=== PATIENT | male | born 1955 | race Caucasian/White ===

== ENCOUNTER → 2020-01-02 12:58 | Outpatient (BNVA) | payer OTHER, SELFPAY | PROVIDERS: Visit Provider Urology | DX: Z76.89 Persons encountering health services in other specified circumstances (principal) ==

== ENCOUNTER → 2020-07-02 11:32 | Outpatient (BNVA) | payer OTHER, SELFPAY | PROVIDERS: Visit Provider Urology ==

== ENCOUNTER → 2020-12-31 09:59 | Outpatient (BNVA) | payer MEDICARE, OTHER, SELFPAY | PROVIDERS: Visit Provider Urology | DX: E29.1 Testicular hypofunction (principal) | CPT/HCPCS: 99212 ==

== ENCOUNTER → 2021-09-10 09:06 | Outpatient (BNVA) | payer MEDICARE, OTHER, SELFPAY | PROVIDERS: Visit Provider Urology | DX: E29.1 Testicular hypofunction (principal) | CPT/HCPCS: 99212 ==

== ENCOUNTER → 2022-03-12 11:30 | Outpatient (BNVA) | payer MEDICARE, OTHER, SELFPAY | PROVIDERS: Visit Provider Urology | DX: Z13.89 Encounter for screening for other disorder (principal) | CPT/HCPCS: Q3014 ==

== ENCOUNTER 2022-09-09 12:21 | Outpatient (AMB) | payer MEDICARE, OTHER, SELFPAY ==
--- NOTE | 2022-09-09 11:55 | MHC.OFFVIS ---
Intake Intake Visit Reasons: 6M Labs(set) Allergies lisinopril Allergy (Unknown, Verified 03/12/22 11:33) Unknown Medication List - Last Reconciled 09/09/22 by Mauricio Kelly MD adalimumab 40 mg subcut Q2W chorionic gonadotropin, human (Pregnyl) 200iu subcutaneous 3 times a week; dispense 82396 units total with 2 refills 60 days etanercept 50 mg subcut QWEEK etanercept mg subcut hydrochlorothiazide 12.5 mg PO DAILY methotrexate sodium mg subcut naltrexone 50 mg PO DAILY prednisone 0 mg PO testosterone 50 mg topical DAILY 60 days testosterone cypionate 30 mg (0.15 mL) subcut .TIW 90 days thyroid (pork) 75 mg PO DAILY thyroid (pork) 81.25 mg PO DAILY thyroid (pork) 60 mg PO DAILY thyroid (pork) 90 mg PO DAILY valsartan 160 mg PO DAILY valsartan 80 mg PO DAILY HPI HPI Comments History of Present Illness Details Evin is a pleasant male. He is seen for the following urologic conditions - hypogonadism Telemedicine Evaluation 15 min Consultation [employer] Minnie Video Stable lab work 09/04 - T cyp 26u Sat/Wed, cream 300% diluted - other days - high levels so reduced, DHEA, progesterone cream, pregnelone - DHEA 180, PSA 1.5, T 1300, E2 60 03/05 T 522 - 3hr post scrotal cream applications 09/03 - Lab work shows good testosterone and free testosterone, high estradiol Hypogonadism Has a number of autoimmune related issues causing low testosterone - on adalimumab The patient also reports loss of libido Considered moderate Laboratory testing has included May 2015 Testosterone 879, estradiol 35, CRP normal. PSA November 2005 5.7 dropped to 2.3 when CRP was under control. September 2015 testosterone 861, DHT 39, estradiol 18, prolactin 23 May 2016 testosterone 954, estradiol 29, free testosterone 11 Dec 2016 T 1300 05/30 T 780, 07/30 607, 11/30 741, 05/31 795 peak T with good DHT, 12/31 T 600. - 04/04 T 890 E2 FT 258, low sex hormone binding globulin PFSH Medical History HTN (hypertension) Hypogonadism in male Hypothyroidism Libido, decreased OA (osteoarthritis) Rheumatoid arthritis Surgical History History of surgery Review of Systems Const All systems reviewed & are unremarkable except as noted in HPI and below Reports no additional complaints Resp Reports no additional complaints GI Reports no additional complaints Reports as per HPI Musc Reports no additional complaints Physical Exam Telemedicine evaluation Appropriate responses Regular breathing rate and rhythm HEENT Head: Yes normal to inspection Ears: hearing grossly normal bilaterally Eyes General: appearance normal, both eyes and all related structures Neck Neck: Yes normal visual inspection Chest Chest palpation & inspection: normal inspection of the chest Resp Effort & Inspection: normal respiratory effort and able to speak in complete sentences Assessment & Plan Assessment & Plan (1) Hypogonadism in male: Code(s): E29.1 - Testicular hypofunction Plan Six month follow-up lab work Medications: Refilled testosterone apply 1 packet daily 50 mg topical DAILY 120 grams 1RF 60 days E29.1 - Testicular hypofunction testosterone cypionate 30 mg (0.15 mL) subcut .TIW 10 mL 1RF 90 days E29.1 - Testicular hypofunction Patient Instructions: Imaging studies, laboratory and physical exam results were discussed and reviewed in detail. No major barriers to patient understanding were identified. An opportunity to ask questions regarding the treatment plan was provided. All questions were answered. The patient expressed understanding and agreement with the above treatment plan. The patient is aware they should contact our office by phone for worsening of their current condition or the appearance of new urologic symptoms. Compliance is encouraged with any medications and followup testing that is ordered. It is a privilege to participate in the urologic care of your patient. If you have any questions or concerns regarding treatment for the above conditions, or other urologic issues, please do not hesitate to contact me. The office telephone contact is [phone]. This note is constructed using voice recognition software. While every effort has been made to ensure accuracy fig washer errors may have been included. Yours sincerely, Dr Mauricio Kelly MD, [facility] - Urology Providers of Expert, Compassionate Care for the Genitourinary System Telehealth Telehealth Location of provider rendering services: practice address Location of patient: address on file Patient Identification confirmed using: Name, : Yes Telehealth method: video Patient verbally consented to treatment: Yes Patient verbally consented to billing insurance company: Yes Patient informed of any privacy concerns related to visit: Yes Coding Level of Care Code Tele Est Pt Level 3 (77468) Diagnoses Hypogonadism in male E29.1
== END 2022-09-09 13:33 | disposition home or self-care (01) ==
LOC: HO.HUSH 12:21
PROVIDERS: Visit Provider Urology
DX: E29.1 Testicular hypofunction (principal)
CPT/HCPCS: 99213

== ENCOUNTER → 2022-09-09 12:21 | Outpatient (BNVA) | payer MEDICARE, OTHER, SELFPAY | PROVIDERS: Visit Provider Urology | DX: E29.1 Testicular hypofunction (principal) ==

== ENCOUNTER 2023-05-11 13:28 | Outpatient (AMB) | payer MEDICARE, OTHER, SELFPAY ==
--- NOTE | 2023-05-11 13:54 | MHC.OFFVIS ---
Intake Intake Visit Reasons: 6M Testo/CBC(set)Confirmed Intake Note: Patient is Present for Follow Up labs Urology Medication: Testosterone Antibiotic Allergies:None Blood Thinners: None Allergies lisinopril Allergy (Unknown, Verified 05/11/23 13:56) Unknown HPI HPI Comments History of Present Illness Details Evin is a pleasant male. He is seen for the following urologic conditions - hypogonadism Stable lab work 05/08 lab work relatively stable. He is altering amounts given 09/04 - T cyp 26u Wed/Wed, cream 300% diluted - other days - high levels so reduced, DHEA, progesterone cream, pregnelone - DHEA 180, PSA 1.5, T 1300, E2 60 03/05 T 522 - 3hr post scrotal cream applications 09/03 - Lab work shows good testosterone and free testosterone, high estradiol Hypogonadism Has a number of autoimmune related issues causing low testosterone - on adalimumab The patient also reports loss of libido Considered moderate Laboratory testing has included May 2015 Testosterone 879, estradiol 35, CRP normal. PSA November 2005 5.7 dropped to 2.3 when CRP was under control. September 2015 testosterone 861, DHT 39, estradiol 18, prolactin 23 May 2016 testosterone 954, estradiol 29, free testosterone 29 Nov 2016 T 1300 05/30 T 780, 07/30 607, 11/30 741, 05/31 795 peak T with good DHT, 12/31 T 600. - 04/04 T 890 E2 FT 258, low sex hormone binding globulin PFSH Medical History OA (osteoarthritis) HTN (hypertension) Rheumatoid arthritis Hypothyroidism Libido, decreased Hypogonadism in male Surgical History History of surgery Review of Systems Const Denies chills and Denies fever(s) Card Reports no additional complaints and Denies syncope Resp Denies cough GI Denies abdominal pain and Denies heartburn Reports as per HPI and Denies change in libido Neuro Denies syncope Psych Denies change in libido Endo Denies change in libido Physical Exam Const General: cooperative, healthy appearing, comfortable and no acute distress Orientation/consciousness: patient oriented x3 HEENT Face and sinus: Yes normal facial exam Mouth: moist mucous membranes Neck Neck: Yes normal visual inspection, Yes full ROM and Yes trachea midline Chest Chest palpation & inspection: normal inspection of the chest Resp Effort & Inspection: normal respiratory effort, able to speak in complete sentences and no respiratory distress GI Inspection: Yes normal to inspection Back/Spine/Pelvis Cervical Spine: normal cervical lordosis Thoracic/Lumbar Spine: thoracic and lumbar spine normal to inspection Skin General skin exam: no rashes or lesions noted Neuro General: patient oriented x3, gait normal, tone normal and moves all extremities Extrem General: Yes normal to inspection and Yes capillary refill normal Assessment & Plan Assessment & Plan (1) Hypogonadism in male: Code(s): E29.1 - Testicular hypofunction Plan Six-month follow-up Orders: Orders Testosterone, Free/Total 04/27/23 E29.1 - Testicular hypofunction Complete Blood Count no Diff 04/27/23 E29.1 - Testicular hypofunction Patient Instructions: Imaging studies, laboratory and physical exam results were discussed and reviewed in detail. No major barriers to patient understanding were identified. An opportunity to ask questions regarding the treatment plan was provided. All questions were answered. The patient expressed understanding and agreement with the above treatment plan. The patient is aware they should contact our office by phone for worsening of their current condition or the appearance of new urologic symptoms. Compliance is encouraged with any medications and followup testing that is ordered. It is a privilege to participate in the urologic care of your patient. If you have any questions or concerns regarding treatment for the above conditions, or other urologic issues, please do not hesitate to contact me. The office telephone contact is [phone]. This note is constructed using voice recognition software. While every effort has been made to ensure accuracy supervisor aircraft maintenance errors may have been included. Yours sincerely, Dr Mauricio Kelly MD, [facility] - Urology Providers of Expert, Compassionate Care for the Genitourinary System Coding Level of Care Code Est Pt Level 4 (63538) Diagnoses Hypogonadism in male E29.1
== END 2023-05-11 14:43 | disposition home or self-care (01) ==
PROVIDERS: Visit Provider Urology
DX: E29.1 Testicular hypofunction (principal)
CPT/HCPCS: 99213

== ENCOUNTER → 2023-05-11 13:28 | Outpatient (BNVA) | payer MEDICARE, OTHER, SELFPAY | PROVIDERS: Visit Provider Urology | DX: E29.1 Testicular hypofunction (principal) | CPT/HCPCS: 99212 ==

== ENCOUNTER 2023-11-09 09:48 | Outpatient (AMB) | payer MEDICARE, OTHER, SELFPAY ==
--- NOTE | 2023-11-09 09:45 | A.OFFVIS_ITS ---
Intake Visit Reasons: 6M Follow Up-Testosterone(Set) Intake Note: Patient is Present for 6m Follow Up/testosterone Urology Medication: Testosterone,pregnyl Antibiotic Allergies:None Blood Thinners: None Hydro Mechanic Required: No Allergies lisinopril Allergy (Unknown, Verified 11/09/23 09:46) Unknown Medication List - Last Reconciled 11/09/23 by Mauricio Kelly MD adalimumab 40 mg subcut Q2W chorionic gonadotropin, human (Pregnyl) 200iu subcutaneous 3 times a week; dispense 87388 units total with 2 refills 60 days etanercept 50 mg subcut QWEEK etanercept mg subcut hydrochlorothiazide 12.5 mg PO DAILY metformin 500 mg PO BID methotrexate sodium mg subcut naltrexone 50 mg PO DAILY prednisone 0 mg PO testosterone 50 mg topical DAILY 60 days testosterone cypionate 30 mg (0.15 mL) subcut .TIW 90 days thyroid (pork) 75 mg PO DAILY thyroid (pork) 81.25 mg PO DAILY thyroid (pork) 60 mg PO DAILY thyroid (pork) 90 mg PO DAILY valsartan 160 mg PO DAILY valsartan 80 mg PO DAILY HPI Comments Details: Evin is a pleasant male. He is seen for the following urologic conditions - hypogonadism Telemedicine Evaluation 15 min Consultation [employer] Minnie Video 11/05 T cyp 14 units QOD - 50mg a week, DHEA 25, pregnolone 100mg // Anti-aromatase - chrysin (plant) - T 620 E2 30 05/08 lab work relatively stable. He is altering amounts given 09/04 - T cyp 26u Sat/Wed, cream 300% diluted - other days - high levels so reduced, DHEA, progesterone cream, pregnelone - DHEA 180, PSA 1.5, T 1300, E2 60 03/05 T 522 - 3hr post scrotal cream applications 09/03 - Lab work shows good testosterone and free testosterone, high estradiol Hypogonadism Has a number of autoimmune related issues causing low testosterone - on adalimumab The patient also reports loss of libido Considered moderate Laboratory testing has included May 2015 Testosterone 879, estradiol 35, CRP normal. PSA November 2005 5.7 dropped to 2.3 when CRP was under control. September 2015 testosterone 861, DHT 39, estradiol 18, prolactin 23 May 2016 testosterone 954, estradiol 29, free testosterone 29 Nov 2016 T 1300 05/30 T 780, 07/30 607, 11/30 741, 05/31 795 peak T with good DHT, 12/31 T 600. - 04/04 T 890 E2 FT 258, low sex hormone binding globulin PFSH Medical History OA (osteoarthritis) HTN (hypertension) Rheumatoid arthritis Hypothyroidism Libido, decreased Hypogonadism in male Surgical History History of surgery Review of Systems Const All systems reviewed & are unremarkable except as noted in HPI and below Reports no additional complaints Resp Reports no additional complaints GI Reports no additional complaints Reports as per HPI Musc Reports no additional complaints Physical Exam Telemedicine evaluation Appropriate responses Regular breathing rate and rhythm HEENT Head: Yes normal to inspection Ears: hearing grossly normal bilaterally Eyes General: appearance normal, both eyes and all related structures Neck Neck: Yes normal visual inspection Chest Chest palpation & inspection: normal inspection of the chest Resp Effort & Inspection: normal respiratory effort and able to speak in complete sentences Telehealth Telehealth Telehealth Platform: [employer] Location of provider rendering services: practice address Location of patient: address on file Patient Identification confirmed using: Name, : Yes Telehealth method: video Patient verbally consented to treatment: Yes Patient verbally consented to billing insurance company: Yes Patient informed of any privacy concerns related to visit: Yes Minutes spent on Phone/Video with Pt.: 15 Assessment & Plan Assessment & Plan (1) Hypogonadism in male: Code(s): E29.1 - Testicular hypofunction Category: Medical Plan 6m f/u Patient Instructions: Imaging studies, laboratory and physical exam results were discussed and reviewed in detail. No major barriers to patient understanding were identified. An opportunity to ask questions regarding the treatment plan was provided. All questions were answered. The patient expressed understanding and agreement with the above treatment plan. The patient is aware they should contact our office by phone for worsening of their current condition or the appearance of new urologic symptoms. Compliance is encouraged with any medications and followup testing that is ordered. It is a privilege to participate in the urologic care of your patient. If you have any questions or concerns regarding treatment for the above conditions, or other urologic issues, please do not hesitate to contact me. The office telephone contact is [phone]. This note is constructed using voice recognition software. While every effort has been made to ensure accuracy mailing machine operator errors may have been included. Yours sincerely, Dr Mauricio Kelly MD, [facility] - Urology Providers of Expert, Compassionate Care for the Genitourinary System Coding Level of Care Code Tele Est Pt Level 3 (34564) Diagnoses Hypogonadism in male E29.1
== END 2023-11-09 11:58 | disposition home or self-care (01) ==
LOC: HO.HUSH 09:48
PROVIDERS: Visit Provider Urology
DX: E29.1 Testicular hypofunction (principal)
CPT/HCPCS: 99213

== ENCOUNTER → 2023-11-09 09:48 | Outpatient (BNVA) | payer MEDICARE, OTHER, SELFPAY | PROVIDERS: Visit Provider Urology ==

== ENCOUNTER 2024-02-09 09:27 | Outpatient (AMB) | payer MEDICARE, OTHER, SELFPAY ==
--- NOTE | 2024-02-09 09:29 | MHC.OFFVIS ---
Intake Visit Reasons: VT/ER follow up Intake Note: Patient is present for [facility] ER Follow up 01/21/Voiding Trial Urology Med: Testosterone, Tamsulosin Antibiotic Allergy: None Blood Thinner: None [facility] ER- Diagnosed with Pancreatic Cancer Possible stricture Allergies lisinopril Allergy (Unknown, Verified 11/09/23 09:46) Unknown HPI Comments Details: Evin is a pleasant male. He is seen for the following urologic conditions - hypogonadism 02/05 recent diagnosis of pancreatic cancer Had been in hospital for rehydration. Was able to void. Joshi catheter placed. Here for voiding trial today Had catheter for 2 weeks. Approx 1200 cc in bladder. Tamsulosin provided 11/05 T cyp 14 units QOD - 50mg a week, DHEA 25, pregnolone 100mg M/W/ Anti-aromatase - chrysin (plant) - T 620 E2 30 05/08 lab work relatively stable. He is altering amounts given 09/04 - T cyp 26u Wed/Wed, cream 300% diluted - other days - high levels so reduced, DHEA, progesterone cream, pregnelone - DHEA 180, PSA 1.5, T 1300, E2 60 03/05 T 522 - 3hr post scrotal cream applications 09/03 - Lab work shows good testosterone and free testosterone, high estradiol Hypogonadism Has a number of autoimmune related issues causing low testosterone - on adalimumab The patient also reports loss of libido Considered moderate Laboratory testing has included May 2015 Testosterone 879, estradiol 35, CRP normal. PSA November 2005 5.7 dropped to 2.3 when CRP was under control. September 2015 testosterone 861, DHT 39, estradiol 18, prolactin 23 May 2016 testosterone 954, estradiol 29, free testosterone 29 Nov 2016 T 1300 05/30 T 780, 07/30 607, 11/30 741, 05/31 795 peak T with good DHT, 12/31 T 600. - 04/04 T 890 E2 FT 258, low sex hormone binding globulin PFSH Medical History OA (osteoarthritis) HTN (hypertension) Rheumatoid arthritis Hypothyroidism Libido, decreased Hypogonadism in male Surgical History History of surgery Review of Systems Const Denies chills and Denies fever(s) Card Reports no additional complaints and Denies syncope Resp Denies cough GI Denies abdominal pain and Denies heartburn Reports as per HPI and Denies change in libido Neuro Denies syncope Psych Denies change in libido Endo Denies change in libido Physical Exam Const General: cooperative, healthy appearing, comfortable and no acute distress Orientation/consciousness: patient oriented x3 HEENT Face and sinus: Yes normal facial exam Mouth: moist mucous membranes Neck Neck: Yes normal visual inspection, Yes full ROM and Yes trachea midline Chest Chest palpation & inspection: normal inspection of the chest Resp Effort & Inspection: normal respiratory effort, able to speak in complete sentences and no respiratory distress GI Inspection: Yes normal to inspection Back/Spine/Pelvis Cervical Spine: normal cervical lordosis Thoracic/Lumbar Spine: thoracic and lumbar spine normal to inspection Skin General skin exam: no rashes or lesions noted Neuro General: patient oriented x3, gait normal, tone normal and moves all extremities Extrem General: Yes normal to inspection and Yes capillary refill normal Office Procedures Bladder/Catheter Procedure Details: patient presents to office for voiding trial after hospitalization at [facility]. 120mls sterile water instilled through catheter, patient tolerated well. Removed 12fr joshi catheter, patient tolerated well. MA to check how much patient urinates and bladder scan [place] Dr[place] [id number] of Bladder Procedure code (CPT) selection complete Assessment & Plan Assessment & Plan (1) Urinary retention with incomplete bladder emptying: Code(s): R33.9 - Retention of urine, unspecified Category: Medical (2) Hypogonadism in male: Code(s): E29.1 - Testicular hypofunction Category: Medical Plan Two month follow-up PVR office Orders: Orders AMB Post Void Residual by ultrasound Today E29.1 - Testicular hypofunction AMB Bladder/Catheter Procedure Today E29.1 - Testicular hypofunction Medications: New tamsulosin 0.4 mg PO BEDTIME 90 days 90 caps 1RF N13.8 - Other obstructive and reflux uropathy, N40.1 - Benign prostatic hyperplasia with lower urinary tract symptoms, R33.9 - Retention of urine, unspecified Patient Instructions: Imaging studies, laboratory and physical exam results were discussed and reviewed in detail. No major barriers to patient understanding were identified. An opportunity to ask questions regarding the treatment plan was provided. All questions were answered. The patient expressed understanding and agreement with the above treatment plan. The patient is aware they should contact our office by phone for worsening of their current condition or the appearance of new urologic symptoms. Compliance is encouraged with any medications and followup testing that is ordered. It is a privilege to participate in the urologic care of your patient. If you have any questions or concerns regarding treatment for the above conditions, or other urologic issues, please do not hesitate to contact me. The office telephone contact is [phone]. This note is constructed using voice recognition software. While every effort has been made to ensure accuracy meter repair shop supervisor errors may have been included. Yours sincerely, Dr Mauricio Kelly MD, [facility] - Urology Providers of Expert, Compassionate Care for the Genitourinary System Coding Level of Care Code Est Pt Level 4 (72185) Diagnoses Urinary retention with incomplete bladder emptying R33.9 Hypogonadism in male E29.1 CPT Codes Bladder/Catheter Procedure - CPT: 24081-Ruxbcirrmv of Bladder ([id number])
== END 2024-02-09 10:47 | disposition home or self-care (01) ==
PROVIDERS: Visit Provider Urology
DX: R33.9 Retention of urine, unspecified (principal); E29.1 Testicular hypofunction
CPT/HCPCS: 51700; 99214

== ENCOUNTER → 2024-02-09 09:27 | Outpatient (BNVA) | payer MEDICARE, OTHER, SELFPAY | PROVIDERS: Visit Provider Urology | DX: R33.9 Retention of urine, unspecified (principal); E29.1 Testicular hypofunction | CPT/HCPCS: 51700; 99212 ==

== ENCOUNTER → 2024-04-07 10:51 | Outpatient (BNVA) | payer MEDICARE, OTHER, SELFPAY | PROVIDERS: Visit Provider Urology | DX: R33.9 Retention of urine, unspecified (principal); E29.1 Testicular hypofunction | CPT/HCPCS: 51798; 81003; 99212 ==

== ENCOUNTER 2024-09-22 11:51 | Outpatient (AMB) | payer MEDICARE, OTHER, SELFPAY ==
--- NOTE | 2024-09-22 11:52 | A.OFFVIS_ITS ---
Intake Visit Reasons: test results Intake Note: Patient is present for TEST RESULTS Urology Medication:TESTOSTERONE Antibiotic Allergy:NONE Blood Thinner:NONE Feller Buncher Operator Required: No Allergies lisinopril Allergy (Unknown, Verified 09/22/24 11:54) Unknown PFSH Medical History OA (osteoarthritis) HTN (hypertension) Rheumatoid arthritis Hypothyroidism Libido, decreased Hypogonadism in male Surgical History History of surgery Coding
--- NOTE | 2024-09-22 11:55 | A.OFFVIS_ITS ---
Intake Visit Reasons: test results Allergies lisinopril Allergy (Unknown, Verified 09/22/24 11:54) Unknown HPI Comments Details: Evin is a pleasant male. He is seen for the following urologic conditions - hypogonadism - urinary retention Telemedicine Evaluation 15 min Consultation [employer] Minnie Video 10/06 Gemcitabine/Plaxotaxol T 50 E2 17 -250mg/gm - 6mg daily scrotal - adequate symptom control 04/08 PVR 20 cc Continue tamsulosin Has been using testosterone Did discuss using bolus muscle injection in order to max EPO and red cell production 02/05 recent diagnosis of pancreatic cancer had been in hospital for rehydration. Was able to void. Fuller catheter placed. Had catheter for 2 weeks. Approx 1200 cc in bladder. Tamsulosin provided 11/05 T cyp 14 units QOD - 50mg a week, DHEA 25, pregnolone 100mg M/W/ Anti-aromatase - chrysin (plant) - T 620 E2 30 05/08 lab work relatively stable. He is altering amounts given 09/04 - T cyp 26u Wed/Wed, cream 300% diluted - other days - high levels so reduced, DHEA, progesterone cream, pregnelone - DHEA 180, PSA 1.5, T 1300, E2 60 03/05 T 522 - 3hr post scrotal cream applications 09/03 - Lab work shows good testosterone and free testosterone, high estradiol Hypogonadism Has a number of autoimmune related issues causing low testosterone - on adalimumab The patient also reports loss of libido Considered moderate Laboratory testing has included May 2015 Testosterone 879, estradiol 35, CRP normal. PSA November 2005 5.7 dropped to 2.3 when CRP was under control. September 2015 testosterone 861, DHT 39, estradiol 18, prolactin 23 May 2016 testosterone 954, estradiol 29, free testosterone 29 Nov 2016 T 1300 05/30 T 780, 07/30 607, 11/30 741, 05/31 795 peak T with good DHT, 12/31 T 600. - 04/04 T 890 E2 FT 258, low sex hormone binding globulin PFSH Medical History OA (osteoarthritis) HTN (hypertension) Rheumatoid arthritis Hypothyroidism Libido, decreased Hypogonadism in male Surgical History History of surgery Review of Systems Const All systems reviewed & are unremarkable except as noted in HPI and below Reports no additional complaints Resp Reports no additional complaints GI Reports no additional complaints Reports as per HPI Musc Reports no additional complaints Physical Exam Telemedicine evaluation Appropriate responses Regular breathing rate and rhythm HEENT Head: Yes normal to inspection Ears: hearing grossly normal bilaterally Eyes General: appearance normal, both eyes and all related structures Neck Neck: Yes normal visual inspection Chest Chest palpation & inspection: normal inspection of the chest Resp Effort & Inspection: normal respiratory effort and able to speak in complete sentences Telehealth Telehealth Telehealth Platform: [employer] Location of provider rendering services: practice address Location of patient: address on file Patient Identification confirmed using: Name, : Yes Telehealth method: voice only Patient verbally consented to treatment: Yes Patient verbally consented to billing insurance company: Yes Patient informed of any privacy concerns related to visit: Yes Minutes spent on Phone/Video with Pt.: 15 Assessment & Plan Assessment & Plan (1) Hypogonadism in male: Code(s): E29.1 - Testicular hypofunction Category: Medical (2) Urinary retention with incomplete bladder emptying: Code(s): R33.9 - Retention of urine, unspecified Category: Medical Plan Continue surveillance for testosterone Patient Instructions: This note is constructed using voice recognition software. While every effort has been made to ensure accuracy dandy tender errors may have been included. Imaging studies, laboratory and physical exam results were discussed and reviewed in detail. No major barriers to patient understanding were identified. An opportunity to ask questions regarding the treatment plan was provided. All questions were answered. The patient expressed understanding and agreement with the above treatment plan. The patient is aware they should contact our office by phone for worsening of their current condition or the appearance of new urologic symptoms. Compliance is encouraged with any medications and followup testing that is ordered. It is a privilege to participate in the urologic care of your patient. If you have any questions or concerns regarding treatment for the above conditions, or other urologic issues, please do not hesitate to contact me. The office telephone contact is [phone]. Sincerely, Dr Mauricio Kelly MD, [facility] - Urology Compassionate Specialist Care for the Genitourinary System Coding Level of Care Code Tele Est Pt Level 3 (41703) Diagnoses Hypogonadism in male E29.1 Urinary retention with incomplete bladder emptying R33.9
--- OUTSIDE RECORDS SUMMARY | 2024-09-22 12:16 | XMS_ITS | Encounter Summary ---
Author Organization [facility] Address [address] [place] [address] Care Team Providers Care Precision Jig Grinder Name Role Phone Rudolph Fry Primary Care Provider [phone] Santhosh Holliday MD Primary Care Provider [phone] Encounter Details Date Type Department Care Team (Late Contact Info) Description 02/10/2022 Orders Only [facility] Nephrology [address] [place] [phone] Kaleigh Greer MD [address] [place] [phone] Social History Tobacco Use Types Packs/Day Years Used Date Smoking Tobacco: Never Smokeless Tobacco: Never Sex and Gender Information Value Date Recorded Sex Assigned at Male 03/07/2020 8:02 AM EST Legal Sex Male 11:07 PM EDT Gender Identity Male 03/07/2020 8:02 AM EST Sexual Orientation Straight 03/07/2020 8: 02 AM EST documented as of this encounter Miscellaneous Notes * Result Encounter Note - Kaleigh Greer MD - 02/10/2022 3:30 PM EST Kidney function is stable, no changes. Sodium is a little low, would avoid overexuberant fluid intake. documented in this encounter Plan of Treatment Upcoming Encounters Date Type Department Care Team ([facility] Contact Info) Description 03/02/2025 1:00 PM EST Office Visit [facility] Nephrology [address] [place] [address], [place] [address] Kaleigh Greer MD [address] [place] [address] 1 year f/u documented as of this encounter Procedures * Due to [facility] law, this organization might not be sharing negative HIV tests. Procedure Name Priority Date/Time Associated Diagnosis Comments BASIC METABOLIC PANEL WITH (GFR) Routine 02/10/2022 3:30 PM EST Stage 3b chronic kidney disease documented in this encounter Results * Due to [facility] law, this organization might not be sharing negative HIV tests. * (ABNORMAL) BASIC METABOLIC PANEL WITH (GFR) (02/10/2022 3:30 PM EST) Glucose 84 65 - 99 mg/dL [facility] Comment:Fasting reference in terval Urea Nitrogen Blood (BUN) 19 7 - 25 mg/dL [facility] Creatinine 1.62(H) 0.70 - 1.35 mg/dL [facility] EGFR 47(L) > OR = 60 mL/min/1.7 3m2 [facility] Comment: The eGFR is based on the CKD-EPI 2020 equation. To calculate the new eGFR from a previous Creatinine or Cystatin C result, go to https://www.kidney.org/professionals/ kdoqi/gfr%5Fcalculator BUN/Creatinine Ratio 12 6 - 22 (calc) [facility] Sodium 134(L) 135 - 146 mmol/L [facility] Potassium 4.3 3.5 - 5.3 mmol/L [facility] Chloride 98 98 - 110 mmol/L [facility] Carbon dioxide 24 20 - 32 mmol/L [facility] Calcium 9.5 8.6 - 10.3 mg/dL [facility] 02/10/2022 3:30 PM EST 02/11/2022 12:07 AM EST Narrative [facility] - 02/11/2022 3:01 AM EST Please note that this estimated GFR does not include an adjustment for the patient's height or weight, and can therefore, be viewed as reliable only for patients with heights between 60 and 72 . More precise quantification using a 24-hour urine sample or height-based algorithm is recommended for patients outside of this range of height and for those individuals with more precise needs for GFR calculation. Resulting Agency Comment [id number] us Kaleigh Greer MD LABORATORY Final Result [facility] [address] [place] [address] documented in this encounter Visit Diagnoses Diagnosis Stage 3b chronic kidney disease (HCC) documented in this encounter Care Teams Precision Jig Grinder Relationship Specialty Start Date End Date Rudolph Fry [facility] [address] [place] [address] PCP - General Internal Medicine 03/30/17 03/01/24 Santhosh Holliday MD [facility] [address] [facility] [address] [place] [address] PCP - General Family Medicine 03/02/24 documented as of this encounter
--- OUTSIDE RECORDS SUMMARY | 2024-09-22 12:16 | XMS_ITS | Encounter Summary ---
Author Organization [facility] Address [address] [place] [address] Care Team Providers Care Cotton Gin Yard Supervisor Name Role Phone Santhosh Holliday MD Primary Care Provider [phone] Encounter Details Date Type Department Care Team (Late st Contact Info) Description 11/18/2017 Scan Document - View in Chart [facility] [address] [facility] [address] [place] [phone] Rudolph Fry MD [address] [facility] [address] [place] [address] Social History Tobacco Use Types Packs/Day Years Used Date Smoking Tobacco: Never Smokeless Tobacco: Never Alcohol Use Standard Drinks/Week Comments Yes 0 (1 standard drink = 0.6 oz pur e alcohol) very rare (on methotrexate) Depression Answer Date Recorded PHQ-2 Score 0 07/01/2017 PHQ-9 Total Score 0 07/01/2017 [place] Scale Score: Not on file 8 Sex and Gender Information Value Date Recorded Sex Assigned at Male 12/03/2020 2:46 PM EDT Legal Sex Male 11:10 AM EST Gender Identity Male 12/03/2020 2:46 PM EDT Sexual Orientation Straight 12/03/2020 2: 46 PM EDT documented as of this encounter Plan of Treatment Not on file documented as of this encounter Visit Diagnoses Not on filedocumented in this encounter Care Teams Cotton Gin Yard Supervisor Relationship Specialty Start Date End Date Santhosh Holliday MD [address] [address] PCP - General Internal Medicine 09/08/22 Kaleigh Greer MD [facility] [address] [place] [address] Consulting Physician Nephrology 12/23/17 documented as of this encounter
--- OUTSIDE RECORDS SUMMARY | 2024-09-22 12:16 | XMS_ITS | Encounter Summary ---
Author Organization [facility] Address [address] [place] [address] Care Team Providers Care Bark Peeler Name Role Phone Santhosh Holliday MD Primary Care Provider [phone] Encounter Details Date Type Department Care Team (Late st Contact Info) Description 04/04/2024 Orders Only [facility] Interventional Radiology [address] [place], [place] [phone] Olivia Darby MD [address] [place], [place] [phone] Social History Tobacco Use Types Packs/Day Years Used Date Smoking Tobacco: Never Smokeless Tobacco: Never Alcohol Use Standard Drinks/Week Comments Never 0 (1 standard drink = 0.6 oz pur e alcohol) [facility] Utilities Answer Date Recorded In the past 12 months has e electric, gas, oil, or water company threatened to shut off services in your home? No 03/21/2024 Hunger Vital Sign Answer Date Recorded Within the past 12 months, y ou worried that your food would run out before you got the money to buy more. Never true 03/21/19 25 Within the past 12 months, t he food you bought just didn't last and you didn't have money to get more. Never true 03/21/2024 Transportation Answer Date Recorded In the past 12 months, has l ack of reliable transportation kept you from medical appointments, meetings, work or from getting things needed for daily living? No 03/21/2024 Housing Answer Date Recorded Housing Risk Low 2 03/21/2024 Housing Risk Medium Not on file 03/21/2024 Housing Risk High Not on file 03/21/2024 What is your living situation today? [facility] 03/21/2024 Sex and Gender Information Value Date Recorded Sex Assigned at Male 10/23/2020 12:01 AM EDT Legal Sex Male 12:18 AM EDT Gender Identity Male 10/23/2020 12:01 AM EDT Sexual Orientation Straight 10/23/2020 12 :01 AM EDT documented as of this encounter Plan of Treatment Upcoming Encounters Date Type Department Care Team (Late st Contact Info) Description 09/26/2024 8:30 AM EDT Infusion [facility] [address] [place] [id number] eDb Berg, CHANTAL 09/26/2024 9:00 AM EDT [facility] [address] [place] [phone] Afsaneh Mccall, CHANTAL 10/10/2024 8:15 AM EDT [facility] [address] [place] [address] 10/10/2024 9:00 AM EDT Follow-Up [facility] [address] [address] Veterinary Manager: Hayley Nicole PA [address] [place] [address] 10/10/2024 9:30 AM EDT [facility] [address] [place] [address] 10/17/2024 2:00 PM EDT [facility] [address] [place] [address] 10/17/2024 2:30 PM EDT [facility] [address] [place] [address] 10/24/2024 1:15 PM EDT [facility] [address] [place] [address] 10/24/2024 2:00 PM EDT [facility] [address] [place] [address] documented as of this encounter Visit Diagnoses Not on filedocumented in this encounter Additional Health Concerns Infection Onset Date Last Indicated Resolved Time R/O Respiratory Virus Infection 04/14/2024 04/14/2024 11:46 PM EST R/O Influenza 04/14/2024 04/14/2024 04/14/2024 11: 46 PM EST COVID-19 - Suspected infection 04/14/2024 04/14/2024 04/14/2024 11:46 PM EST R/O C.diff 04/15/2024 04/15/2024 04/15/2024 8:55 AM EST R/O C.diff 04/15/2024 04/20/2024 04/27/2024 10:3 2 PM EST R/O Respiratory Virus Infection 05/19/2024 05/19/2024 7:00 PM EST R/O Influenza 05/19/2024 05/19/2024 05/19/2024 7:0 0 PM EST COVID-19 - Suspected infection 05/19/2024 05/19/2024 05/19/2024 7:00 PM EST R/O Respiratory Virus Infection 2024 2024 9:15 PM EDT R/O Influenza 2024 2024 2024 9:1 5 PM EDT COVID-19 - Suspected infection 2024 2024 2024 9:15 PM EDT R/O C.diff 2024 2024 07/24/2024 11:1 5 AM EDT documented as of this encounter Care Teams Bark Peeler Relationship Specialty Start Date End Date Santhosh Holliday MD [address] [place] [id number] PCP - General Family Medicine 01/21/24 Santhosh Holliday [address] [place] [id number] Family Practice Provider 09/13/23 documented as of this encounter
--- OUTSIDE RECORDS SUMMARY | 2024-09-22 12:16 | XMS_ITS | Data Portability ---
Author Organization [facility], , [facility] Address [address], [place] Assessment Encounter Date Assessment Date Assessment LastModified by Organization Details LastModified Time 01/09/2015 01/09/2015 atypical melanocytic lesion left side upper mid-back: moderate atypia [email or web address] Not available 01/13/2015 13:04:23 12/12/2015 12/12/2015 CPE: New patient.Presen ts for evaluation. Medical history were taken; Family and social history reviewed; Possible risk factors reviewed and discussed. [facility] and they are normal. He is seing by urologist, [employer] set up operator , and everything is fine according to pt; He is not interested in lipids panel due to insurance issue. He does not want colonoscopy at present and will contact me when he decide to do this test. jtrister Not available 12/12/2015 09:13:57 Plan of Treatment Reminders Order Date Submit Date Provider Last Modified By Organization Details Last Modified Time Details Appointments None recorded. Lab biopsy, skin - Excision left side mid back area, medial suture marking. Atypia dysplastic nevus; extending to one peripheral margin 2014 015 [facility], 15 [facility] [address], [place], [address], 6 05:05:44 biopsy, skin - punch biopsy / A typical mole from midback area 2014 015 [facility], 15 [facility], [facility] [address], [place], [address], 6 05:04:05 Referral None recorded. Procedures None recorded. Surgeries None recorded. Imaging None recorded. Medication Orders liothyronin e 5 mcg tablet 2014 015 jtrister [id number], [address] [place], [address], 5 13:26:27 lisinopril 5 mg tablet 2014 015 [email or web address] [id number], [address] [place], [address], 6 08:39:09 Patient TargetsNo targets recorded. Patient Instructions Encounter Date Encounter Id Patient Instructions Last Modified By Organization Details Last Modified Time 12/10/2014 [id number] elevated blood pressure: care instructions DON Not available 02/16/2016 05:04:05 Take medications as prescribed.Follow recommended diet.Contact office at [phone] if any problems develop. jtrister Not available 12/10/2014 13:27:24 Joe Hart MD spent 20 minutes examining the patient , reviewing diagnostic, consultative and imaging findings. I explained to patient the nature of the problems and other possible treatments: surgical intervention Risk and benefits of these interventions were discussed in details.50 % of this visit was dedicated to counseling. jtrister Not available 12/10/2014 13:27:24 12/19/2014 [id number] Take medications as prescribed.Follow recommended diet.Contact office at [phone] if any problems develop. [email or web address] Not available 12/25/2014 11:07:27 Joe Hart MD spent 20 minutes examining the patient , reviewing diagnostic, consultative and imaging findings. I explained to patient the nature of the problems and other possible treatments: pharmacological and dietary management Risk and benefits of these interventions were discussed in details.50 % of this visit was dedicated to counseling. tgardell Not available 12/25/2014 11:07:27 01/09/2015 [id number] Take medications as prescribed.Follow recommended diet.Contact office at [phone] if any problems develop. jtrister Not available 01/29/2015 21:37:09 I, spent 30 minutes examining the patient , reviewing diagnostic, consultative and imaging findings. I explained to patient the nature of the problems and other possible treatments: pharmacological and dietary management surgical intervention Risk and benefits of these interventions were discussed in details.50 % of this visit was dedicated to counseling. jtrister Not available 01/29/2015 21:37:09 12/12/2015 [id number] Take medications as prescribed.Follow recommended diet.Contact office at [phone] if any problems develop. jtrister Not available 12/18/2015 12:11:20 Joe Hart M D spent 30 minutes examining , reviewing diagnostic, consultative, imaging findings . I explained to patient the nature of the problems and other possible treatments: pharmacological and dietary management Risk and benefits of these interventions were discussed in details.50 % of this visit was dedicated to counseling. Anti-inflamatory food and supplements are potent modulator of biochemical processes. Here is a partial list of recommended foods and possible supplements: 1.Fish and Fish oil supplements.Chicke n, turkey, duck ( preferably grass fed 2.Red Pepper (chili,cayenne,pep per,pimiento,cherr y pepper)Turmeric , Herminia, Teri,Clove,Nut paige,Cinnamon: Potent substances, which reduce inflammation and pain transmission. 3.Garlic, Onions, Apples,Broccoli,Br ussels sprouts,Cabbage, Cauliflower,Berrie s,Parsley,Grapes,C itrus fruit and peel,Red tomatoes ,Red grapefruit, watermelon and other red fruits and vegetables,Berries , cherries,red grape,pomegranate, eggplant. For those, who are looking for supplements : please ask Dr. Kan for Advise. jtrister Not available 12/18/2015 12:11:16 Reason for Referral None Reported. Results Created Date Observation Date Name Description Value Unit Range Abnormal Flag Note LastModifiedBy Organization Detail LastModifiedTime Result Notes None recorded. 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 Procedures Surgical History Date Name Laterality Status Provider Name and Address Organization Details Recorded Time 5 Eliptical excision completed Joe Kan MD [address] [place], [address], [facility], 01/13/2015 12:56:07 5 Layer closure 2.6-7.5 cm trunk etc completed Joe Kan MD [address] [place], [address], [facility], 01/13/2015 12:56:07 5 Excision and closure ( summary) completed Joe Kan MD [address] [place], [address], [facility], 12/10/2014 13:27:27 Imaging Results None recorded. Procedure Notes None recorded. Medical Equipment None Reported. Allergies No known drug allergies Medications Name Sig Start Date Stop Date Status Note LastModified by Organization Details LastModified Time methotrexa te sodium 10 mg tablet Take 1 tablet every week by oral route as directed for 30 days. 12/11 completed Not Available Not Available Not Available naltrexone 50 mg tablet DISSOLVE 1 TABLET IN 500 ML DISTILLED WATER, AND TAKE 20-45 ML DAILY IN EVENING DIRECTED active Not Available Not Available No t Available lisinopril 20 mg tablet Take 1 tablet every day by oral route as directed for 30 days. active Not Available Not Available No t Available testostero ne cypionate 100 mg/mL intramuscu lar oil Inject 200 mg every week by intramusc ular route. active Not Available Not Available No t Available prednisone 5 mg tablet Take 1 tablet twice a day by oral route. active 12.5 mg daily Not Available Not Available Not Available Pregnyl 10,000 unit intramuscu lar solution USE 1 VIAL UTD FOR 30 DAYS active Not Available Not Available No t Available liothyroni ne 5 mcg tablet TAKE 1 TABLET TWICE A DAY BY ORAL ROUTE FOR 30 DAYS. active Not Available Not Available No t Available levothyrox ine 88 mcg tablet Take 1 tablet every day by oral route for 90 days. active Not Available Not Available No t Available prednisone 1 mg tablet TAKE 2 TABLETS TWICE DAILY OR DIRECTED 12/11 completed Not Available Not Available Not Available prednisone 2.5 mg tablet ONE TABLET TWICE A DAY DAILY 12/11 completed Not Available Not Available Not Available lisinopril 10 mg tablet Take 1 tablet every day by oral route as directed for 30 days. 10/20 completed Not Available Not Available Not Available lisinopril 5 mg tablet TAKE 1 TABLET(S) EVERY DAY BY ORAL ROUTE FOR 90 DAYS. 12/11 completed Not Available Not Available Not Available furosemide 20 mg tablet active Not Available Not Available Not Available testostero ne cypionate 200 mg/mL intramuscu lar oil active Not Available Not Available Not Available Enbrel 50 mg/mL (1 mL) subcutaneo us syringe active Not Available Not Available N ot Available naltrexone 4 mg QHS (LDN) active Not Available Not Available No t Available hydrochlor othiazide 12.5 mg tablet Take 1 tablet every day by oral route as directed for 30 days. active Not Available Not Available No t Available Suprep Bowel Prep Kit 17.5 gram-3.13 gram-1.6 gram oral solution active Not Available Not Available Not Available Otrexup (PF) 10 mg/0.4 mL subcutaneo us auto-injec tor active Not Available Not Available Not Available Rasuvo (PF) 10 mg/0.2 mL subcutaneo us auto-injec tor active Not Available Not Available Not Available Vitals Date Recorded Heart rate Body temperature Systolic And Diastolic Provider Name and Address Organization Details Last Updated DateTime 12/10/2014 68 /min 97 [degF] 120/80 mm[Hg] Joe Kan MD [address] [place] [address], [phone], [place] - [facility], 12/14/2014 13:23:03 Date Recorded Body height Heart rate Body temperature Body weight Body mass index (BMI) Oxygen saturation Oxygen saturation in Arterial blood by Pulse oximetry Systolic And Diastolic Provider Name and Address Organization Details Last Updated DateTime 6 167.64 cm 72 /min 97.8 [degF] 30639.0 8 g 23.7 kg/m2 99 % 99 % 126/70 mm[Hg] milan ramos [facility], 6 08:38:34 Date Recorded Body weight Body height Body temperature Heart rate Body mass index (BMI) Systolic And Diastolic Provider Name and Address Organization Details Last Updated DateTime 5 23986.6 7076 g 167.64 cm 97.6 [degF] 63 /min 23.9 kg/m2 142/84 mm[Hg] Missy Garaymaureen [facility], 5 13:02:27 Date Recorded Body weight Body temperature Heart rate Body mass index (BMI) Body height Systolic And Diastolic Provider Name and Address Organization Details Last Updated DateTime 5 24173.6 7076 g 99.2 [degF] 80 /min 23.9 kg/m2 167.64 cm 142/88 mm[Hg] Joe Kan MD [address] [place] [address], [phone], [facility], 5 14:29:38 Date Recorded Body weight Body temperature Heart rate Body mass index (BMI) Body height Systolic And Diastolic Provider Name and Address Organization Details Last Updated DateTime 5 57220.8 555 g 99.4 [degF] 89 /min 24.2 kg/m2 167.64 cm 130/70 mm[Hg] Cassidy La Nena [facility], 5 13:30:21 Social History Question Answer Notes LastModified by Organizat ion Details LastModified Time Tobacco Smoking Status Never Smoker Not Available [employer] 12/29/2019 03:10:45 Marital Status [email or web address] Informatio n not available 11/05/2014 How Many Children Do You Have? 2 [id number] Information not available 12/29/2019 Sex: Unknown Functional Status Question Answer Note LastModified by Organization D etails LastModified Time What is your level of alcohol consumption? None [id number] Information not available 12/29/2019 Are you currently employed? No [id number] Information not available 12/29/2019 Mental Status None recorded. Family History Relationship Description Onset Age of this Age Resolved Age Notes LastModified by Organization Details LastModified Time Father Malignant tumor of pancreas 76 jtrister Not available 2014 21:30:09 Mother Diabetes mellitus 83 as of 2014 [email or web address] Not available 02/11/2015 21:30:09 Medical History Condition Response Coronary Artery Disease N Gout N Metabolic Syndrome Y Bipolar disorder N Hyperthyroidism N Hyperipidemia Y Lung Disease N Hypothyroidism Y COPD N Depression N Pneumonia N Myofascial pain syndrome N TIA N Diabetes Mellutus type 1 N TMJ OA N Tobacco dependence N Headache (Migraines) N Knee OA Y Alcoholism N Food sensitivity and intollerance N Valvular heart disease N Obesity N Cholecystitis N Diabetes Mellitus Type 2 Y Cancer N Shoulder OA N Feet OA N Substance dependence N Skin disorder N Hepatitis alcoholic N Rheumatoid Arthritis Y Hip OA N Schizophrenia N Atrial fibrillation N Fibromyalgia N Inflammatory bowel disease N Allergies/Hayfever N DVT/PE N Skin Infection N Heart Conditions N Anxiety N Hepatitis A N Somatic dysfunction N Back pain (lumbar OA) N Gluten sensitivity N Headache (Tension) N Acne N Lyme disease N Hypertriglyceridemia N Hepatitis C N Anemia N Anemia B-12 defficiency N Back pain (thoracic OA) N Venous insufficiency N Heart Attack ([place]) N Radiculopathy N Dyspepsia N Bleeding Disorder N CHF N Seizures/Epilepsy N Joints replacement N Ankle OA N Fingers OA N BPH N Wrist OA N Somatization N Carpal tunnel Syndrome Y Urinary Tract Infection N Diverticulitis N CVA N Asthma N Hepatitis B N Neck (Cervical) OA N Peripheral Vascular Disease N Elbow joint pain N Sleep Disorder N GERD/Reflux N Neuropathy N Pulmonary Embolism N Peptic Ulcer disease N Hypertension Y Osteoporosis N Past Encounters Encounter ID Performer Location Encounter Start Date Encounter Closed Date Diagnosis/Indication Diagnosis SNOMED-CT Code Diagnosis ICD10 Code Diagnosis Note [id number] Joe Kan MD [address] [address] 11/05/2014 13:27:21 11/05/2014 14:18:27 Adult health examination 272771560 Rheumatoid arthritis 59584988 Dysplastic nevus of skin 209411517 excisional biopsy [id number] Joe Kan MD [facility] [address] [place] [address] 12/10/2014 12:55:08 12/10/2014 13:28:26 Dysplastic nevus of skin 893431481 excisional biopsy Hypertensive disorder 46104815 [id number] Joe Kan MD [facility] [address] [place] [address] 12/19/2014 12:49:32 12/19/2014 13:41:02 Dysplastic nevus of skin 671522826 D22.9 excisional biopsy [id number] Joe Kan MD [facility] [address] [place] [address] 01/09/2015 14:08:51 01/09/2015 15:36:05 Dysplastic nevus of skin 583234645 D22.9 excisional biopsy [id number] Joe Kan MD [facility] [address] [place] [address] 01/17/2015 13:14:04 01/17/2015 13:50:21 Melanocytic nevus 284482905 D22.9 [id number] Joe Kan MD [facility] [address] [place] [address] 12/12/2015 08:05:58 12/12/2015 09:20:30 Adult health examination 755350315 Z00.00 Health Concerns Section Related Observation LastModified by Organization Detai ls LastModified Time None Recorded Concern Status LastModified by Organization Details LastModified Time None Recorded Advance Directives Directive None Recorded Payers Insurance Date Sequence Insurance Name Policy Number Policy Lantigua Covered Member ID Lantigua Member ID Guarantor Name 12/18/2015 1 [facility] MEDICARE EXTENSION (INDEMNITY) [id number] Kami Sánchez [id number] Pranav Sánchez Notes Date Note Type Note Provider Name and Address Organization Details Recorded Time 12/12/2015 text/html Annual Wellness VisitReported bypatient.Diet and Nutrition:healthy diet Fracture Risk:no history of fractures; no recent explained fracture; no sudden unexplained fractures; previous musculoskeletal injuries Physical Activity:exercises on a regular basis; recent increase in physical activity; good physical condition Depression Risk:never feels sad, empty, or tearful; no loss of interest in activities; no significant changes in weight; no sleep disturbances or insomnia; no agitation; no loss of energy; no feelings of worthlessness or guilt; no thoughts of suicide; no history of depression; no history of mood disorders Orientation:no disorientation to time; no disorientation to date; no disorientation to place Concentration and Memory:no decreased concentrating ability; no memory lapses or loss; does not forget words Speech/Motor difficulties:no speech difficulties; no difficulty expressing formulated concepts; no difficulty with fine manipulative tasks; no difficulty writing/copying; no slowed reaction time; does not knock things over when trying to pick them up Hearing:no loss of hearing Vision:no vision problems Activities of Daily Living:able to bathe with limited or no assistance; able to contol urination and bowels; able to dress with limited or no assistance; able to feed self with limited or no assistance; able to get out of chair or bedwith limited or no assistance; able to groom with limited or no assistance; able to toilet with limited or no assistance Instrumental Activities of Daily Living:able to do house work with limited or no assistance; able to grocery shop with limited or no assistance; able to manage medications with limited or no assistance; able to manage money with limited or no assistance; able to prepare meals with limited or no assistance; able to use the phone with limited or no assistance Falls Risk Assessment:no frequent falls while walking; no fall in the past year; no fall since last visit; no dizziness/vertigo Home Safety:no unsafe tian hazzards; no unsafe stairs; no unsafe gas appliances; working smoke/CO detectors; wears protective head gear for biking/high velocity; use of seatbelts; practicing 'safer sex'; no vision or hearing loss while driving; no fire arms; has hand bars in the bathroom/shower; good lighting in the home Joe Kan MD [address] [place] [address], [phone], AYDIN [facility], 12/18/2015 12:11:24
== END 2024-09-22 13:38 | disposition home or self-care (01) ==
LOC: HO.HUSH 11:51
PROVIDERS: Visit Provider Urology
DX: E29.1 Testicular hypofunction (principal); R33.9 Retention of urine, unspecified
CPT/HCPCS: 99213